=== PATIENT | female | born 1990 | race Caucasian/White ===

== ENCOUNTER 2020-09-09 16:16 | Outpatient (CLI) | payer OTHER ==
[~2020-09-09 16:16] MED LIST: Iopamidol 370 76% 100 ML VIAL ONE; Iopamidol 370 76% 50 ML VIAL FS ONE
[2020-09-09 17:07] LABS: BHCG - Serum Negative (NEGATIVE); Pregs Control Background? CLEAR/WHITE (CLR/WHITE); Pregs Control Bar Appear? YES (CONTROL BAR)
--- NOTE | 2020-09-09 18:38 | CT ---
CT OF THE ABDOMEN AND PELVIS WITH IV CONTRAST INDICATION: Right lower quadrant groin pain for one week concern for appendicitis COMPARISON: None FINDINGS: ABDOMEN: Lung bases: Clear Liver: No focal lesion. Gallbladder: Normal appearing. Pancreas: Normal. Adrenal glands: Normal. Spleen: Normal. Kidneys and ureters: Normal. No hydronephrosis. Vasculature: Normal. Lymph nodes:No lymphadenopathy. Free fluid in abdomen:No free fluid is evident. PELVIS: Small and large bowel: Normal Appendix:Normal Bladder: There are small bladder diverticulum seen along the posterior lateral margins of the bladder dome, the largest on the left measuring 2 cm and the smaller the right measuring 9 mm. Rectal and perirectal soft tissues:Normal. Reproductive structures: There is a 2.6 cm left ovarian follicular cyst. Free fluid in pelvis: No free fluid is evident. Lymphadenopathy pelvis: No lymphadenopathy is evident. Osseous structures: No acute osseous abnormality. No destructive osteolytic or osteoblastic lesion i s identified. There is scattered degenerative and osteoarthritic changes. Soft tissues:Normal. IMPRESSION: 1. Normal appendix. 2. Left ovarian follicular cyst measuring 2.6 cm. 3. Small posterior lateral bladder dome diverticula. There is no secondary signs to suggest superimpo sed UTI.
== END 2020-09-09 16:17 | disposition home or self-care (01) ==
LOC: RAD 16:16
PROVIDERS: ATTEND Physician Assistant
DX: R10.31 Right lower quadrant pain (principal); N83.02 Follicular cyst of left ovary; N32.3 Diverticulum of bladder
CPT/HCPCS: 36415; 74177; 84703; Q9967